=== PATIENT | male | born 1990 | race Caucasian/White ===

== ENCOUNTER 2016-10-21 01:30 | Emergency (ER) | payer OTHER ==
[~2016-10-21] VITALS: Ht 180.3 cm; Wt 114.1 kg
[~2016-10-21 01:30] MED LIST: Z.0.NO CURRENT MEDS
[2016-10-21 01:36] VITALS: BP 143/69; PULSE 93; RESP 16; TEMP 98.6; O2SAT 99
[2016-10-21 01:51] VITALS: BP 143/69; PULSE 93; RESP 18; TEMP 98.6; O2SAT 99
== END 2016-10-21 02:58 | disposition left against medical advice (07) ==
LOC: PHED 01:30
DX: H92.01 Otalgia, right ear (principal); Z53.21 Procedure and treatment not carried out due to patient leaving prior to being seen by health care provider
CPT/HCPCS: 99281